=== PATIENT | male | born 1995 | race Caucasian/White ===

== ENCOUNTER 2018-09-20 10:42 | Emergency (ER) | payer OTHER ==
[~2018-09-20] VITALS: Ht 195.6 cm; Wt 81.6 kg
--- OUTSIDE RECORDS SUMMARY | 2018-09-20 10:45 | XMS REPORT | Clinical Summary ---
Author Author [facility] Organization [facility] Address Unknown Phone Unavailable Care Team Providers Care [employer] Name Role Phone Atilio Moon MD PCP Allergies No Known Allergies Medications No known medications Active Problems Not on file Encounters Care Team Description Date Type Specialty Constantine Romo MD Left lower quadrant pain (Primary Dx) 11/18/2017 Office Visit Gastroenterology after 09/19/2017 Family History Medical History Relation Name Comments Crohn's disease Father Crohn's disease Mother Relation Name Status Comments Father Alive Mother Alive Social History Date Tobacco Use Types Packs/Day Years Used Never Smoker Smokeless Tobacco: Never Used Alcohol Use Drinks/Week oz/Week Comments Yes 1 every 2 weeks Sex Assigned at Date Recorded Not on file Industry Job Start Date Occupation Not on file Not on file Not on file Travel End Travel History Travel Start No recent travel history available. Last Filed Vital Signs Time Taken Vital Sign Reading 11/18/2017 9:35 AM CDT Blood Pressure 127/76 11/18/2017 9:35 AM CDT Pulse 86 11/18/2017 9:35 AM CDT Temperature 36.6 C (97.8 F) 11/18/2017 9:35 AM CDT Respiratory Rate 12 - Oxygen Saturation - - Inhaled Oxygen - Concentration 11/18/2017 9:35 AM CDT Weight 85.7 kg (189 lb) 11/18/2017 9:35 AM CDT Height 198.1 cm (6' 6") 11/18/2017 9:35 AM CDT Body Mass Index 21.84 Plan of Treatment Health Maintenance Due Date Last Done Comments INFLUENZA VACCINE 10/14/2018 Results Not on fileafter 09/19/2017 Insurance Type Payer Benefit Subscriber ID Effective Phone Address Plan / Dates Group PPO AETNA AETNA PPO xxxxxxxxxx [id number] OPEN resent CHOICE Advance Directives Patient has advance care planning documents on file. For more information, edgardo guerra contact: Rigo Kaplan [address] [place] [address]
[2018-09-20] MEDS ORDERED: IPRATROPIUM BROMIDE 0.02% 2.5 ML NEB NEB STA (10:54)
[2018-09-20] MEDS ORDERED: IBUPROFEN 600 MG TAB PO STA (10:54)
[2018-09-20] MEDS ORDERED: ALBUTEROL SULF 0.083% NEB SOLN 3 ML NEB NEB STA (10:54)
[2018-09-20] MEDS ORDERED: DEXAMETHASONE SOD PHOS 10 MG/1 ML VIAL IM ONE (11:00)
[2018-09-20] MEDS ORDERED: ACETAMINOPHEN/CODEINE ELIX 120-12 MG/5 ML UDC PO ONE (11:00)
[2018-09-20] MEDS ORDERED: ACETAMINOPHEN/CODEINE 300MG - 30MG TAB PO ONE (11:15)
[2018-09-20] MEDS ORDERED: AZITHROMYCIN 500MG/NS 250 ML 250 ML IV ONE (11:30)
--- NOTE | 2018-09-20 11:41 | Diagnostic Imaging Report ---
EXAMINATION: CHEST 2 VIEWS INDICATION: Cough, fever COMPARISON: None FINDINGS: TUBES and LINES: None. LUNGS: The lungs are well-inflated. There are multifocal patchy airspace opacities at the left mid lung which silhouette the left heart border. PLEURA: No pleural effusion or pneumothorax. HEART AND MEDIASTINUM: The cardiomediastinal silhouette is normal in size and contour. BONES AND SOFT TISSUES: No acute fracture or dislocation. UPPER ABDOMEN: No free air under the diaphragm. IMPRESSION: Left upper lobe airspace opacities compatible with aspiration and/or pneumonia. RECOMMENDATIONS: Follow-up chest radiograph in 4-6 weeks to confirm resolution. Signed by: Tamra Boyle MD on 09/20/2018 11:38 AM
[2018-09-20] MEDS ORDERED: DEXAMETHASONE SOD PHOS 10 MG/1 ML VIAL ONE (12:26)
[2018-09-20] MEDS ORDERED: ALBUTEROL SULF 0.083% NEB SOLN 3 ML NEB ONE (12:27)
[2018-09-20] MEDS ORDERED: IPRATROPIUM BROMIDE 0.02% 2.5 ML NEB ONE (12:27)
[2018-09-20] MEDS ORDERED: LEVOFLOXACIN 250 MG TAB PO ONE (13:00)
[2018-09-20] MEDS ORDERED: CEFTRIAXONE SOD 1 GM VIAL IM ONE (13:15)
== END 2018-09-20 13:27 | disposition home or self-care (01) ==
LOC: ER 10:42
DX: R50.9 Fever, unspecified (principal); R05 Cough; J15.9 Unspecified bacterial pneumonia
CPT/HCPCS: 71046; 94640; 99283; J0696; J1100